=== PATIENT | female | born 1955 | race Caucasian/White ===

== ENCOUNTER → 2017-04-25 15:55 | Outpatient (CLI) | payer OTHER | END | disposition home or self-care (01) | LOC: D.MAMMO 11:00 | DX: Z12.31 Encounter for screening mammogram for malignant neoplasm of breast (principal) ==

== ENCOUNTER → 2018-04-26 18:22 | Outpatient (CLI) | payer OTHER | END | disposition home or self-care (01) | LOC: D.MAMMO 11:00 | DX: Z12.31 Encounter for screening mammogram for malignant neoplasm of breast (principal) ==

== ENCOUNTER 2018-12-18 12:29 | Emergency (ER) | payer OTHER ==
[~2018-12-18] VITALS: Ht 167.6 cm; Wt 59.1 kg
[2018-12-18 12:30] VITALS: Ht 167.6 cm; Wt 59.1 kg
[2018-12-18] MEDS ORDERED: PROZAC10 MG (12:55)
[2018-12-18 13:18] LABS: APPEARANCE CLEAR (CLEAR); BILIRUBIN NEGATIVE (NEGATIVE); COLOR YELLOW (YELLOW); GLUCOSE NEGATIVE (NEGATIVE); KETONE NEGATIVE (NEGATIVE); NITRITE NEGATIVE (NEGATIVE); PROTEIN NEGATIVE (NEGATIVE); SPECIFIC GRAVITY 1.005 (1.005-1.020); UROBILINOGEN NORMAL (NORMAL)
[2018-12-18 13:20] LABS: BASOPHILS 0.2 % (0-2); EOSINOPHILS 1.4 % (0-7); HEMATOCRIT 37.5 % (36.0-48.0); IMMATURE GRANULOCYTES 0.2 % (0-5); LYMPHOCYTES 30.3 % (15-50); MCH 30.4 pg (26.0-34.0); MCHC 34.7 g/dL (31.0-37.0); MCV 87.8 fL (80.0-100.0); MEAN PLATELET VOLUME 9.2 fL (7.4-10.4); MONOCYTES 5.3 % (2-11); NEUTROPHILS 62.6 % (40-80); PLATELET COUNT 226 10x3/uL (130-400); RBC 4.27 10x6/uL (4.00-5.40); RDW 13.2 % (11.5-14.5); WBC 5.6 10x3/uL (4.8-10.8)
[2018-12-18 13:38] LABS: ALBUMIN 4.3 g/dL (3.4-5.0); ANION GAP 14.7 mmol/L (8-16); BILIRUBIN - TOTAL 0.63 mg/dL (0.2-1.3); CALCIUM 9.9 mg/dL (8.5-10.1); CARBON DIOXIDE 25.7 mmol/L (21.0-32.0); CREATININE - SERUM 1.1 mg/dL (0.6-1.3); POTASSIUM - SERUM 3.4 mmol/L (3.5-5.1); PROTEIN - SERUM 7.9 g/dL (6.4-8.2)
[2018-12-18 15:22] LABS: UDS - AMPHET NEGATIVE QUAL (NEGATIVE); UDS - BARB NEGATIVE QUAL (NEGATIVE); UDS - BENZO NEGATIVE QUAL (NEGATIVE); UDS - COCAINE NEGATIVE QUAL (NEGATIVE); UDS - OPIATE NEGATIVE QUAL (NEGATIVE); UDS - PCP NEGATIVE QUAL (NEGATIVE); UDS - THC NEGATIVE QUAL (NEGATIVE)
[2018-12-18 20:05] VITALS: BP 155/79
== END 2018-12-18 20:05 ==
LOC: D.ER 12:29
PROVIDERS: Family Medicine
DX: R45.851 Suicidal ideations (principal); F32.9 Major depressive disorder, single episode, unspecified

== ENCOUNTER 2020-05-02 16:17 | Emergency (ER) | payer SELFPAY ==
[~2020-05-02] VITALS: Ht 167.6 cm; Wt 70.5 kg
[~2020-05-02 16:17] MED LIST: PROZAC10 MG
[2020-05-02 16:20] VITALS: Ht 167.6 cm; Wt 70.5 kg
[2020-05-02] MEDS ORDERED: ACETAMINOPHEN500 M1 PO (17:06)
[2020-05-02] MEDS ORDERED: CYCLOBENZAPRINE10 MG PO (17:06)
[2020-05-02] MEDS ORDERED: IBUPROFEN800 MG PO (17:06)
[2020-05-02 18:01] VITALS: BP 140/87
== END 2020-05-02 18:01 | disposition home or self-care (01) ==
LOC: D.ER 16:17
DX: S50.12XA Contusion of left forearm, initial encounter (principal)

== ENCOUNTER 2020-05-13 05:10 | Day surgery (SDC) | payer MEDICARE, OTHER ==
[2020-05-11 09:32] LABS: HEMATOCRIT 38.6 % (36.0-48.0); HEMOGLOBIN 12.6 g/dL (12-16); MCH 29.2 pg (26.0-34.0); MCHC 32.6 g/dL (31.0-37.0); MCV 89.6 fL (80.0-100.0); MEAN PLATELET VOLUME 9.3 fL (7.4-10.4); RBC 4.31 10x6/uL (4.00-5.40); RDW 13.2 % (11.5-14.5); WBC 5.4 10x3/uL (4.8-10.8)
[~2020-05-13] VITALS: Ht 170.2 cm; Wt 70.3 kg
--- NOTE | ~2020-05-13 | OP ---
PATIENT NAME: JOSH KEENE MEDICAL RECORD: [id number] :53 LOCATION:D.OPS ADMISSION DATE: SURGEON: MAX RUTLEDGE DPM DATE OF OPERATION: 05/13/2020 PREOPERATIVE DIAGNOSES: 1. Left third interspace neuroma. 2. Bone spur, left first, second and fifth digits. POSTOPERATIVE DIAGNOSES: 1. Left third interspace neuroma. 2. Bone spur, left first, second and fifth digits. PROCEDURES: 1. Left third interspace neurectomy. 2. Left hallux spur removal. 3. Left second digit spur removal. 4. Left fifth digit spur removal. ANESTHESIA: General with local infiltrate utilizing 20 cc of 1:1 mix of lidocaine and Marcaine around the third interspace of the first and second digit and fifth digit. HEMOSTASIS: Left ankle tourniquet at 250 mmHg. PREOPERATIVE DETAILS: The patient was taken to the OR and placed on the operating table in supine position followed by induction of general anesthesia and infiltration of local anesthetic. The left extremity was then prepped and draped in the usual aseptic technique followed by exsanguination and inflation of tourniquet. PROCEDURE #1: Neurectomy left third interspace. A 15 blade was used to create a 3 cm linear incision over the third interspace extending to the sulcus of the third, fourth toe. The incision was deepened down through subcutaneous tissue bluntly with a hemostat. Dissection was carried down to the intermetatarsal ligament. The neuroma was visualized and quite large, it was freed from surrounding soft tissue structures, it was freed from the common digital nerve to the third and fourth digit first and carried proximally to the metatarsal heads as far as possible and transected and sent to pathology for gross and micro identification. The wound was flushed. The subcutaneous tissue was reapproximated with 4-0 Rapide and the skin was closed with 4-0 Rapide in a subcuticular technique followed by Dermabond. PROCEDURE #2: Spur removal lateral aspect of the left hallux. Small stab incision was made over the lateral aspect of the left hallux IPJ. The incision was deepened down through subcutaneous tissue to the bone. It was freed from the spur. A rasp was used to smooth the spur. The wound was flushed and the skin was closed with 4-0 Rapide in a simple interrupted technique followed by Dermabond. PROCEDURE 3: Left second digit spur removal. A small stab incision was made over the medial aspect of the DIPJ of the left second digit. The incision was deepened down to bone. The spur was freed from soft tissue structures. A bone rasp was used to smooth the bone spur. Wound was flushed. Excellent reduction of the spur was noted. The wound was closed with 4-0 Rapide in a simple OPERATIVE REPORT [id number] JOSH KEENE interrupted technique followed by Dermabond. PROCEDURE #4: Spur removal, left fifth digit. A 15-blade was used to create a longitudinal incision over the dorsal lateral aspect of the PIPJ of the left fifth digit. The incision was deepened down to bone. The spur was freed from its surrounding soft tissue structures. A bone rasp was used to smooth the bone spur. Wound was flushed. The skin was then closed with 4-0 Rapide in a simple interrupted technique followed by Dermabond. Adaptic, 4 x 4 and Conform were used to dress all the wounds followed by Tete. Tourniquet was deflated. POSTOPERATIVE DETAILS: The patient tolerated the procedure well and left the OR with vital signs stable and vascular status at preoperative levels. The patient was transported to recovery per anesthesia in stable condition. TRANSINT:[id number] Voice Confirmation ID: [id number] DOCUMENT ID: [id number] MAX RUTLEDGE DPM CC: [id number] DICTATION DATE: 05/13/20802 SENIOR MICROS[employer]FT NET DEVELOPER: 05/13/20 0941 REG [facility] [address] [place] [address]
[~2020-05-13 05:10] MED LIST changes: +ACETAMINOPHEN500 M1 PO; +CYCLOBENZAPRINE10 MG PO; +FENOFIBRATE160 MG PO; +FERROUS SULFAT325 MG PO; +IBUPROFEN800 MG PO; +LIPITOR20 MG PO; +MULTI-DAY VITAM1 TAB PO; +NORVASC5 MG PO; +OXYBUTYNIN CHLOR5 MG PO; +PEPCID AC20 MG PO; -PROZAC10 MG; +PROZAC10 MG PO; +TRAZODONE HCL150 MG PO; +XANAX0.25 MG PO
[2020-05-13 06:19] VITALS: BP 144/73; Ht 170.2 cm; Wt 70.3 kg
--- NOTE | 2020-05-13 09:55 | NUR ---
0930 IV D/C'D WITH CANNULA INTACT, PRESSURE HELD, AND DRSG PLACED. DISCHARGE INSTRUCTIONS GIVEN. PT AND VERBALIZED AN UNDERSTANDING. DISCHARGED HOME IN STABLE CONDITION AND W/O C/O
== END 2020-05-13 09:30 | disposition home or self-care (01) ==
LOC: D.OPS 05:10 → D.PAN 07:00 → D.OPS 07:00
PROVIDERS: Anesthesiology; ATTEND Podiatrist
DX: G57.82 Other specified mononeuropathies of left lower limb (principal); M77.52 Other enthesopathy of left foot and ankle

== ENCOUNTER 2020-11-30 09:45 | Outpatient (CLI) | payer MEDICARE, OTHER ==
[2020-05-13 06:19] VITALS: BMI 24.3
[~2020-11-30 09:45] MED LIST changes: +DITROPAN XL 1010 MG PO; -OXYBUTYNIN CHLOR5 MG PO
[2020-12-01] MEDS ORDERED: PROTONIX40 MG PO (19:44)
[2020-12-01] MEDS ORDERED: AMBIEN10 MG PO (19:47)
[2020-12-01] MEDS ORDERED: MIRALAX17 GM PO (22:14)
[2020-12-01] MEDS ORDERED: ASPIRIN81 MG PO (22:14)
== END 2020-11-30 23:59 | disposition home or self-care (01) ==
LOC: D.MAMMO 09:45
PROVIDERS: ATTEND Family Medicine
DX: Z12.31 Encounter for screening mammogram for malignant neoplasm of breast (principal)

== ENCOUNTER 2020-12-01 16:11 | Inpatient (IN) | payer MEDICARE, OTHER ==
[~2020-12-01] VITALS: Ht 170.2 cm; Wt 75.0 kg
[2020-12-01 17:22] LABS: BASOPHILS 0.3 % (0-2); EOSINOPHILS 2.2 % (0-7); HEMATOCRIT 35.9 % (36.0-48.0); HEMOGLOBIN 12.3 g/dL (12-16); IMMATURE GRANULOCYTES 0.2 % (0-5); LYMPHOCYTES 25.1 % (15-50); MCH 29.7 pg (26.0-34.0); MCHC 34.3 g/dL (31.0-37.0); MCV 86.7 fL (80.0-100.0); MEAN PLATELET VOLUME 9.2 fL (7.4-10.4); MONOCYTES 4.7 % (2-11); NEUTROPHIL ABS# 4.03 10x3/uL (1.56-6.13); NEUTROPHILS 67.5 % (40-80); PLATELET COUNT 207 10x3/uL (130-400); RBC 4.14 10x6/uL (4.00-5.40); RDW 13.1 % (11.5-14.5)
[2020-12-01 17:25] LABS: APTT 27.2 SECONDS (22.8-39.4); INR 1.09 (0.85-1.17); PROTIME 13.1 SECONDS (11.6-15.0)
[2020-12-01 17:34] LABS: ANION GAP 11.4 mmol/L (8-16); CALCIUM 9.7 mg/dL (8.5-10.1); CARBON DIOXIDE 27.3 mmol/L (21.0-32.0); POTASSIUM - SERUM 3.7 mmol/L (3.5-5.1)
[2020-12-01 17:40] LABS: ALBUMIN 4.3 g/dL (3.4-5.0); BILIRUBIN - TOTAL 0.35 mg/dL (0.2-1.3); PROTEIN - SERUM 7.2 g/dL (6.4-8.2)
[2020-12-01 17:47] VITALS: BP 172/68
--- NOTE | 2020-12-01 19:25 | NUR ---
REC'D PATIENT TO ROOM 1208 FROM ER. PATIENT TRANS FROM STRETHCHER TO BED WITHOUT DIFFICULTY. PATIENT RATES PAIN 2/10. HAS IV TO LEFT WRIST WITH NO SIGNS OF INFILTRATION. VSS. COMPLETED CHG BATH. PLACED SCD TO RLE. INSTRUCTED ON INCENTIVE SPIROMETER, PATIENT DEMONSTRATED USE. INSTRUCTED PATIENT ON NOTHING TO EAT/DRINK AFTER MIDNIGHT, PATIENT VERBALIZED UNDERSTANDING. ELEVATED LLE ON PILLOWS X2, ELEVATED FOOT OF THE BED, AND APPLIED ICE PACKS. INSTRUCTED PATIENT TO CALL FOR HELP TO BSC AND EXPLAINED THAT SHE IS NWB TO LLE. PATIENT VERBALIZED UNDERSTANDING. BED IN LOWEST POSITION, CALL LIGHT IN REACH, AND BED ALARM ON. ENCOURAGED PATIENT TO CALL WITH NEEDS.
[2020-12-01] MEDS ORDERED: PROTONIX40 MG PO (19:44)
[2020-12-01] MEDS ORDERED: AMBIEN10 MG PO (19:47)
--- NOTE | 2020-12-01 20:30 | NUR ---
SIDRA CASE APN IN REGARDS TO PATIENT'S HOME MEDICATIONS.
--- NOTE | 2020-12-01 21:51 | NUR ---
ADMINISTERED MEDS PER ORDERS. PATIENT TAMMIE WELL. ENCOURAGED TO CALL WITH NEEDS.
[2020-12-01 21:57] VITALS: BP 161/74; Ht 170.2 cm; Wt 75.0 kg
[2020-12-01] MEDS ORDERED: MIRALAX17 GM PO (22:14)
[2020-12-01] MEDS ORDERED: ASPIRIN81 MG PO (22:14)
[2020-12-02 05:25] VITALS: BP 107/83
[2020-12-02 07:36] LABS: BASOPHILS 0.3 % (0-2); EOSINOPHILS 1.4 % (0-7); HEMATOCRIT 34.2 % (36.0-48.0); HEMOGLOBIN 11.2 g/dL (12-16); IMMATURE GRANULOCYTES 0.2 % (0-5); MCH 28.9 pg (26.0-34.0); MCHC 32.7 g/dL (31.0-37.0); MCV 88.1 fL (80.0-100.0); MEAN PLATELET VOLUME 9.3 fL (7.4-10.4); MONOCYTES 6.6 % (2-11); NEUTROPHIL ABS# 4.83 10x3/uL (1.56-6.13); NEUTROPHILS 74.5 % (40-80); PLATELET COUNT 183 10x3/uL (130-400); RBC 3.88 10x6/uL (4.00-5.40); RDW 13.4 % (11.5-14.5); WBC 6.5 10x3/uL (4.8-10.8)
[2020-12-02 07:41] LABS: ALBUMIN 3.6 g/dL (3.4-5.0); ANION GAP 12.3 mmol/L (8-16); BILIRUBIN - TOTAL 0.67 mg/dL (0.2-1.3); CALCIUM 8.7 mg/dL (8.5-10.1); CARBON DIOXIDE 24.5 mmol/L (21.0-32.0); POTASSIUM - SERUM 3.8 mmol/L (3.5-5.1); PROTEIN - SERUM 6.3 g/dL (6.4-8.2)
--- NOTE | 2020-12-02 07:55 | NUR ---
PT RESTING QUIETLY IN BED. REPORTS PAIN 6/10 AT THIS TIME. LEFT LOWER EXTREMITY IN CAST SPLINT AND ELEVATED. EXTREMITY WARM TO TOUCH. PT PRE-OP'D AT THIS TIME PER PRE OP. ASSISTED PT TO BSC WITH MINIMAL ASSIST. IV TO RIGHT FOREARM WITH NS @ 50ML/HR INFUSING VIA PUMP. SITE WITHOUT REDNESS OR EDEMA. SALINE LOC TO LEFT WRIST SITE WITHOUT REDNESS OR EDEMA. DISCUSSED UPCOMING PROCEDURE WITH PT, AND MEDICATIONS ADMINISTERING. PT DENIES ANY QUESTIONS OR CONCERNS AT THIS TIME. CL WITHIN REACH. ENCOURAGED TO CALL WITH NEEDS. CONTINUE POC
[2020-12-02 08:00] VITALS: BP 120/76
--- NOTE | 2020-12-02 09:00 | NUR ---
PT TAKEN VIA BED FOR PROCEDURE. JEWELRY REMOVED.
[2020-12-02 12:13] VITALS: BP 125/61
[2020-12-02 12:28] VITALS: BP 112/60
[2020-12-02 12:43] VITALS: BP 110/61
[2020-12-02 12:58] VITALS: BP 117/57
[2020-12-02] MEDS ORDERED: HYDROCODON-ACE1 EA10 PO (14:05)
[2020-12-02] MEDS ORDERED: ASPIRIN81 MG PO (14:05)
[2020-12-02] MEDS ORDERED: VISTARIL50 MG PO (14:05)
--- NOTE | 2020-12-02 20:40 | MORECARE ---
CASE MANAGEMENT DISCHARGE SUMMARY PATIENT: JOSH KEENE UNIT: [id number] ADM DATE: 12/01/20 AGE: 65 : 54 SEX: F ROOM/BED: D.1208 AUTHOR: JAMEL BOLTON PHYSICIAN: REFERRING PHYSICIAN: BRE GAMBOA DO DATE OF SERVICE: 12/02/20 Discharge Plan Patient Name: JOSH KEENE [facility] : 1955 Planned Disposition: Home Anticipated Discharge Date: Discharge Date: 12/02/2020 Expected LOS: Initial Reviewer: [email or web address] Initial Review Date: 12/01/2020 Generated: 12/02/20 9:39 pm DCPIA - Discharge Planning Initial Assessment Updated by [email or web address]: Lisa West on 12/02/20 8:39 pm * Is the patient Alert and Oriented? Yes * How many steps to enter\exit or inside your home? * PCP Keyla * Pharmacy [facility] * Preadmission Environment Home with Family * ADLs Independent * Equipment Wheelchair * Other Equipment scooter * List name and contact numbers for known caregivers / representatives who currently or will assist patient after discharge: Devendra Keene [phone] * Verbal permission to speak to the caregivers and representatives has been obtained from the patient. Yes * Community resources currently utilized None * Additional services required to return to the preadmission environment? No * Can the patient safely return to the preadmission environment? Yes * Has this patient been hospitalized within the prior 30 days at any hospital? No Patient Name: JOSH KEENE Page [id number] at 2040 All edits/amendments must be made on the electronic document DICTATION DATE: 12/02/202038 MANAGER STATISTICAL: JAZMÍN 12/02/202038 RPT#: [id number] DC DATE:12/02/20 STATUS: DIS IN [facility] [address] [place] [address] END OF REPORT
--- NOTE | 2020-12-02 20:47 | MORECARE ---
CASE MANAGEMENT DISCHARGE SUMMARY PATIENT: JOSH KEENE UNIT: [id number] ADM DATE: 12/01/20 AGE: 65 : 53 SEX: F ROOM/BED: D.1208 AUTHOR: CHE,DOC PHYSICIAN: REFERRING PHYSICIAN: BRE GAMBOA DO DATE OF SERVICE: 12/02/20 Discharge Plan Patient Name: JOSH KEENE Facility: [facility]:[place] : 1955 Planned Disposition: Home Anticipated Discharge Date: Discharge Date: 12/02/2020 Expected LOS: Initial Reviewer: [email or web address] Initial Review Date: 12/01/2020 Generated: 12/02/20 9:46 pm Comments DCP- Discharge Planning Updated by [email or web address]: Lisa West on 12/02/20 7:[address] Patient Name: JOSH KEENE Admission Status: ER Accout number: [id number] Admission Date: 12-01-2020 : 1955 Admission Diagnosis: Attending: BRE GAMBOA Current LOS: 1 Anticipated DC Date: Planned Disposition: Home Primary Insurance: MEDICARE A & B Discharge Planning Comments: CM spoke with patient to complete initial dc planning assessment. CM educated patient on the CM role and verbal consent given by patient to complete assessment. Patient lives at home with family. Patient is independent. At discharge patient plans to return home and feels this is a safe discharge. CM discussed availability of home health, rehab services, and medical equipment. Set up DME with [facility] for deliver of BSC and walker. Patient is to be none weight bearing for 6-8 weeks. Patient will have family to transport home. Patient denied known discharge needs at this time. CM will continue to follow and will assist as needed with dc plans/needs. Hat Forming Machine Feeder: Lisa West DCPIA - Discharge Planning Initial Assessment Updated by [email or web address]: Lisa West on 12/02/20 8:39 pm * Is the patient Alert and Oriented? Yes * How many steps to enter\exit or inside your home? * PCP Keyla * Pharmacy [facility] * Preadmission Environment Home with Family * ADLs Independent * Equipment Wheelchair * Other Equipment scooter * List name and contact numbers for known caregivers / representatives who currently or will assist patient after discharge: Devendra Keene [phone] * Verbal permission to speak to the caregivers and representatives has been obtained from the patient. Yes * Community resources currently utilized None * Additional services required to return to the preadmission environment? No * Can the patient safely return to the preadmission environment? Yes * Has this patient been hospitalized within the prior 30 days at any hospital? No Last DP export: 12/02/20 7:40 p Patient Name: JOSH KEENE Page [id number] at 2047 All edits/amendments must be made on the electronic document DICTATION DATE: 12/02/202045 WOODWORKING MACHINE FEEDER: JAZMÍN 12/02/202045 RPT#: [id number] DC DATE:12/02/20 STATUS: DIS IN [facility] [address] [place] [address] END OF REPORT
--- NOTE | 2020-12-03 08:10 | OP ---
PATIENT NAME: JOSH KEENE MEDICAL RECORD: [id number] :53 LOCATION:D. D.1208 ADMISSION DATE:12/01/20 SURGEON: VIN GAMBOA DO DATE OF OPERATION: 12/01/2020 PROCEDURE PERFORMED: Left ankle open reduction internal fixation. PREOPERATIVE DIAGNOSIS: Left ankle bimalleolar fracture. POSTOPERATIVE DIAGNOSIS: Left ankle bimalleolar fracture. INDICATIONS: Ms. Keene is a 65-year-old female who tripped over a wheelbarrow in her garden yesterday and sustained a bimalleolar ankle fracture. She was brought to the ER and seen to have a fracture and she was admitted overnight for pain control and for surgery today that being the bimalleolar fracture needed to fix. The patient was aware of the risks of this procedure including infection, bleeding, damage to nerves and vessels, need for further surgery, superficial peroneal nerve damage, malunion, nonunion, continued pain, blood clots and even as well as failure of hardware and she signed the consent. SURGEON: Vin Gamboa DO DESCRIPTION OF PROCEDURE: The patient was taken to the operative suite, laid in supine position after given a block by anesthesia in preoperative area, given a gram of Ancef preoperatively. The patient was sedated and LMA was placed. Left lower extremity was then prepped and draped in sterile fashion. Timeout was performed, everyone was in agreement with the correct site, side, patient, and procedure. I then began by making incision over the lateral malleolus of the fibula. After exsanguinating the left lower extremity with an Esmarch, tourniquet was inflated to 250 mmHg, it was up for 30 minutes. I then made an incision down to the fibula. Careful dissection down to the fracture site, cleaned it out, reduced it with a clamp, and put a plate on, locked 4 screws distally, I did not lock the proximal, they were cortical screws, I locked the distal ones. I then went to the medial side and put 2 K-wires in. Once in good position, the fracture was reduced, I put two 4-0 cannulated screws 44 mm in length through poke hole incisions with a 15 blade scalpel and then tied them down. I then clamped the ankle joint that she did not really widen but her bone was very soft in order to get better fixation of the fibula, put a ZipTight across, clamped the ankle to hold it in place with the ankle dorsiflexed and then put a ZipTight across the syndesmosis through the fibula plate and through the tibia. I then cinched it down, holding it all together nicely. I then removed that, stressed the ankle, no widening was seen near the lateral and everything was in good position and the tourniquet was let down. Any bleeding was coagulated with a pickup and Bovie. Nelson Quiroz, certified fire investigator, irrigated and closed with 2-0 Vicryl in inverted interrupted fashion on the lateral side and put a ZipLine on it and then the medial side 2 poke holes, closed with a 4-0 Monocryl. She was then dressed with Adaptic, 4 x 4s, ABD, cast padding, Kerlix, another layer of cast padding, and put a 4 x 30 splint posteriorly and fixed it with David wrap, held it in place with an David wrap. She was then awakened and taken to recovery in stable condition. BLOOD LOSS: Minimal. OPERATIVE REPORT [id number] JOSH KEENE COMPLICATIONS: None. TRANSINT:[id number] Voice Confirmation ID: [id number] DOCUMENT ID: [id number] VIN GAMBOA DO at 0810 CC: [id number] DICTATION DATE: 12/02/20 1128 FILM AND VIDEO EDITOR: 12/02/202129 DIS IN 12/02/20 [facility] [address] [place] [address]
== END 2020-12-02 17:15 | disposition home or self-care (01) | DRG 494 ==
LOC: D.ER 16:11 → D.M3 17:25
PROVIDERS: Family Medicine; ADMIT Orthopaedic Surgery; ATTEND Orthopaedic Surgery
PROC: 0QSK04Z Reposition Left Fibula with Internal Fixation Device, Open Approach (ICD-10-PCS; principal; 2020-12-01)
PROC: 0QSH04Z Reposition Left Tibia with Internal Fixation Device, Open Approach (ICD-10-PCS; 2020-12-01)
DX: S82.842A Displaced bimalleolar fracture of left lower leg, initial encounter for closed fracture (principal); W01.0XXA Fall on same level from slipping, tripping and stumbling without subsequent striking against object, initial encounter; I10 Essential (primary) hypertension; K21.9 Gastro-esophageal reflux disease without esophagitis; M81.0 Age-related osteoporosis without current pathological fracture; F32.9 Major depressive disorder, single episode, unspecified